=== PATIENT | male | born 1975 | race Caucasian/White ===

== ENCOUNTER 2018-04-03 19:46 | Emergency (ER) | payer BC ==
[~2018-04-03] VITALS: Ht 190.5 cm; Wt 133.9 kg
[2018-04-03 19:53] VITALS: BP 149/100
== END 2018-04-03 20:56 | disposition home or self-care (01) ==
LOC: ED 20:40
DX: S93.401A Sprain of unspecified ligament of right ankle, initial encounter (principal); X50.1XXA Overexertion from prolonged static or awkward postures, initial encounter; Y93.89 Activity, other specified; Y92.410 Unspecified street and highway as the place of occurrence of the external cause; Y99.8 Other external cause status
CPT/HCPCS: 99284